=== PATIENT | female | born 1990 | race Caucasian/White ===

== ENCOUNTER 2018-05-17 18:43 | Emergency (ER) | payer MEDICAID, SELFPAY ==
[2018-05-17 19:01] VITALS: BP 117/70; PULSE 82; RESP 18; TEMP 36.6; O2SAT 99
[2018-05-17] MEDS: Erythromycin Ophth Oint 3.5 GM TUBE OD (19:56)
--- NOTE | 2018-05-17 19:59 | W.ED.GENAD ---
Discharge Plan Disposition Patient Disposition: HOME Condition: Good Discharge Details Chief Complaint: EyeProblem Clinical Impression: Abrasion, corneal Primary Care Provider: ROMAN CARRILLO ED Provider: Shady Chiu Home Meds and New Rx's Prescriptions: No Action levonorgestrel [Mirena] 1 EACH intrauterine device 1 ea Intrauterine ONCE Qty: 1 RF: 0 Discharge Instructions Instructions: Corneal Abrasion (ED) Additional Instructions: Please follow-up with Dr. Winter immediately tomorrow. Please call their office at 8 AM for follow-up. Please use the antibiotic ointment in your right eye 3 times per day. If you notice any swelling on your lids, pain with movement of your eye, fever, green or yellow discharge, please return immediately. Referrals: [facility] [OTHER] - Medical Decision Making This is a pleasant 27-year-old Female who presents with complaint of foreign body sensation in the patient's right eye. It occurred while she was blowing sawdust, and some got into her eye. She flushed it out significantly earlier at work which was 10 hours prior to arrival. Since then she has had a sensation of a foreign body in the upper aspect of her right eye. No evidence of pre-or post septal cellulitis. No evidence of significant conjunctival injection. No evidence of foreign body retention. Visualization of the cornea reveals no significant abnormalities however no floor seen stain was performed secondary to a hospitalwide shortage of the strips. There were none present in the emergency department, storehouse clerk was contacted and a global search revealed no evidence of fluorescein strips. In spite of this I was unable to see any signs of severe abrasion, however her signs and symptoms clinically are suggestive of a corneal abrasion. She had complete resolution of her pain with tetracaine administration. We will give her erythromycin ointment, she is not a contact lens wearer. She does have a relationship with Dr. Winter. We have instructed her to follow-up tomorrow morning with him. I have extensively reviewed the treatment plan and discharge instructions with the patient and their family. I have addressed all patient concerns at this time. The patient and family was made aware of what symptoms to monitor for that would warrant a return to the emergency department. Discussed the plan with the patient and family, they demonstrate verbal understanding and agreement with our assessment and plan at this time. HPI General Date/Time Provider Initiated Documentation: 05/17/18 19:47. HPI Narrative: This is a 27-year-old female with no significant past medical history who does not wear contacts who presents today for evaluation of right eye pain. She states that at 10 AM she was blowing sawdust when she got something in her right eye. She immediately flushed it with a significant amount of water, however since then she has had a sensation of a foreign body on the top of her eye. Her symptoms have continued throughout the day. She denies any significant vision changes, she denies any pain with movement of her eye. She denies any headache, green or yellow discharge, or any other abnormalities. Tetanus shot is not up-to-date. She does see an baggage security checker for her regular vision care she denies any pertinent family history. Related Data Home Medications Medication Instructions Recorded Confirmed levonorgestrel [Mirena] 1 ea INTRAUTERINE ONCE #1 implant 10/07/17 Allergies Allergy/AdvReac Type Severity Reaction Status Date / Time No Known Allergies Allergy Unverified 05/17/18 19:04 General Stated Complaint: EyeProblem MORTEZA: 3 Review of Systems Review of Systems All systems reviewed & are unremarkable except as noted in HPI and below PFSH Family History Mother Heart disease Grandfather Myocardial infarction Grandmother Breast cancer Medical History Frequent UTI LGSIL on Pap smear of cervix Social History Smoking/Tobacco Use Status: Never Exam Narrative Exam Narrative: 1.Const: Well-nourished, Well-developed, appearing stated age 2.Eyes: Right eye: EOMI, PERRL, Peripheral vision intact. No nystagmus. Fundoscopic exam shows normal optic discs and normal vasculature. No external signs of preseptal cellulitis, no redness around the eye, no proptosis. No hyphema, no signs of trauma around the eye, no periorbital emphysema. Fluorescein exam could not be performed secondary to a complete lack of floor seen in the entire hospital. Visual acuity was normal and equivalent in both eyes. Using slit lamp no signs of significant corneal abrasion or foreign body could be appreciated. Eversion of the upper and lower lids demonstrated no evidence of retained foreign body. 3.ENT: Atraumatic external nose and ears. Moist MM. Neck: Symmetric, trachea midline, No thyromegaly. 4.CVS: +S1/S2, No murmurs or gallops. Peripheral pulses 2+ and equal in all extremities. Brisk capillary refill in all extremities. 5.RESP: Unlabored respiratory effort. Clear to auscultation bilaterally. No wheezes rales or rhonchi 6.GI: Soft, Nontender/Nondistended, No hepatosplenomegaly. No guarding or rebound. 7.MSK: Normocephalic/Atraumatic, Extremities w/o deformity or ttp No cyanosis or clubbing, Normal movement of all extremities 8.Skin: Warm, Dry. No rashes or lesions. 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 Sensation grossly intact, no focal neurologic deficits. 10.Psych: (AAO) x3. Appropriate mood and affect Course Vital Signs Temperature 36.6 C 05/17/18 19:01 Pulse 82 05/17/18 19:01 Respiratory Rate 18 05/17/18 19:01 Blood Pressure 117/70 05/17/18 19:01 Pulse Oximetry 99 05/17/18 19:01 Temperature 36.6 C 05/17/18 19:01 Temperature Source Temporal Artery Scan 05/17/18 19:01 Pulse 82 05/17/18 19:01 Respiratory Rate 18 05/17/18 19:01 Respiratory Effort 05/17/18 19:04 Blood Pressure 117/70 05/17/18 19:01 Pulse Oximetry 99 05/17/18 19:01 Oxygen Delivery Method Room Air 05/17/18 19:01 Oxygen Flow Rate 0 05/17/18 19:01 Pain Level 8 05/17/18 19:01
--- NOTE | 2018-05-17 20:05 | ED.GENADUL_ITS ---
Discharge Plan Disposition Patient Disposition: HOME Condition: Good Discharge Details Chief Complaint: EyeProblem Clinical Impression: Abrasion, corneal Primary Care Provider: ROMAN CARRILLO ED Provider: Shady Chiu Home Meds and New Rx's Prescriptions: No Action levonorgestrel [Mirena] 1 EACH intrauterine device 1 ea Intrauterine ONCE Qty: 1 RF: 0 Discharge Instructions Instructions: Corneal Abrasion (ED) Additional Instructions: Please follow-up with Dr. Winter immediately tomorrow. Please call their office at 8 AM for follow-up. Please use the antibiotic ointment in your right eye 3 times per day. If you notice any swelling on your lids, pain with movement of your eye, fever, green or yellow discharge, please return immediately. Referrals: [facility] C[facility]IE [OTHER] - Medical Decision Making This is a pleasant 27-year-old Female who presents with complaint of foreign body sensation in the patient's right eye. It occurred while she was blowing sawdust, and some got into her eye. She flushed it out significantly earlier at work which was 10 hours prior to arrival. Since then she has had a sensation of a foreign body in the upper aspect of her right eye. No evidence of pre-or post septal cellulitis. No evidence of significant conjunctival injection. No evidence of foreign body retention. Visualization of the cornea reveals no significant abnormalities however no floor seen stain was performed secondary to a hospitalwide shortage of the strips. There were none present in the emergency department, warehouse trainer was contacted and a global search revealed no evidence of fluorescein strips. In spite of this I was unable to see any signs of severe abrasion, however her signs and symptoms clinically are suggestive of a corneal abrasion. She had complete resolution of her pain with tetracaine administration. We will give her erythromycin ointment, she is not a contact lens wearer. She does have a relationship with Dr. Winter. We have instructed her to follow-up tomorrow morning with him. I have extensively reviewed the treatment plan and discharge instructions with the patient and their family. I have addressed all patient concerns at this time. The patient and family was made aware of what symptoms to monitor for that would warrant a return to the emergency department. Discussed the plan with the patient and family, they demonstrate verbal understanding and agreement with our assessment and plan at this time. HPI General Date/Time Provider Initiated Documentation: 05/17/18 19:47 . HPI Narrative: This is a 27-year-old female with no significant past medical history who does not wear contacts who presents today for evaluation of right eye pain. She states that at 10 AM she was blowing sawdust when she got something in her right eye. She immediately flushed it with a significant amount of water, however since then she has had a sensation of a foreign body on the top of her eye. Her symptoms have continued throughout the day. She denies any significant vision changes, she denies any pain with movement of her eye. She denies any headache, green or yellow discharge, or any other abnormalities. Tetanus shot is not up-to-date. 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 Related Data Home Medications Medication Instructions Recorded Confirmed levonorgestrel [Mirena] 1 ea INTRAUTERINE ONCE #1 implant 10/07/17 Allergies Allergy/AdvReac Type Severity Reaction Status Date / Time No Known Allergies Allergy Unverified 05/17/18 19:04 General Stated Complaint: EyeProblem MORTEZA: 3 Review of Systems Review of Systems All systems reviewed & are unremarkable except as noted in HPI and below PFSH Family History Mother Heart disease Grandfather Myocardial infarction Grandmother Breast cancer Medical History Frequent UTI LGSIL on Pap smear of cervix Social History Smoking/Tobacco Use Status: Never Exam Narrative Exam Narrative: 1.Const: Well-nourished, Well-developed, appearing stated age 2.Eyes: Right eye: EOMI, PERRL, Peripheral vision intact. No nystagmus. Fundoscopic exam shows normal optic discs and normal vasculature. No external signs of preseptal cellulitis, no redness around the eye, no proptosis. No hyphema, no signs of trauma around the eye, no periorbital emphysema. Fluorescein exam could not be performed secondary to a complete lack of floor seen in the entire hospital. Visual acuity was normal and equivalent in both eyes. Using slit lamp no signs of significant corneal abrasion or foreign body could be appreciated. Eversion of the upper and lower lids demonstrated no evidence of retained foreign body. 3.ENT: Atraumatic external nose and ears. Moist MM. Neck: Symmetric, trachea midline, No thyromegaly. 4.CVS: +S1/S2, No murmurs or gallops. Peripheral pulses 2+ and equal in all extremities. Brisk capillary refill in all extremities. 5.RESP: Unlabored respiratory effort. Clear to auscultation bilaterally. No wheezes rales or rhonchi 6.GI: Soft, Nontender/Nondistended, No hepatosplenomegaly. No guarding or rebound. 7.MSK: Normocephalic/Atraumatic, Extremities w/o deformity or ttp No cyanosis or clubbing, Normal movement of all extremities 8.Skin: Warm, Dry. No rashes or lesions. 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 Sensation grossly intact, no focal neurologic deficits. 10.Psych: (AAO) x3. Appropriate mood and affect Course Vital Signs Temperature 36.6 C 05/17/18 19:01 Pulse 82 05/17/18 19:01 Respiratory Rate 18 05/17/18 19:01 Blood Pressure 117/70 05/17/18 19:01 Pulse Oximetry 99 05/17/18 19:01 Temperature 36.6 C 05/17/18 19:01 Temperature Source Temporal Artery Scan 05/17/18 19:01 Pulse 82 05/17/18 19:01 Respiratory Rate 18 05/17/18 19:01 Respiratory Effort 05/17/18 19:04 Blood Pressure 117/70 05/17/18 19:01 Pulse Oximetry 99 05/17/18 19:01 Oxygen Delivery Method Room Air 05/17/18 19:01 Oxygen Flow Rate 0 05/17/18 19:01 Pain Level 8 05/17/18 19:01
[2018-05-17] MEDS: Tetracaine 0.5% 4 ML BTL (20:06)
== END 2018-05-17 20:14 | disposition home or self-care (01) ==
PROVIDERS: Emergency Provider Student in an Organized Health Care Education/Training Program
DX: S05.01XA Injury of conjunctiva and corneal abrasion without foreign body, right eye, initial encounter (principal); X58.XXXA Exposure to other specified factors, initial encounter; Y99.0 Civilian activity done for income or pay
CPT/HCPCS: 90471; 99284; 99283

== ENCOUNTER 2024-04-05 15:50 | Outpatient (REF) | payer MEDICAID, SELFPAY | END 2024-04-05 15:51 | disposition home or self-care (01) | LOC: LBN 15:50 | PROVIDERS: Visit Provider Nurse Practitioner Women's Health | DX: N76.0 Acute vaginitis (principal) | CPT/HCPCS: 87480; 87510; 87660 ==

== ENCOUNTER 2025-01-11 05:05 | Outpatient (CLI) | payer MEDICAID, SELFPAY ==
[2025-01-11 12:38] LABS: HCT 42.6 % (36.0-46.0); HGB 13.5 g/dL (11.2-15.7); MCH 29.7 pg (27.0-33.0); MCHC 31.7 % (32.0-36.0); MCV 94 fL (80-95); MPV 9.6 fL (8.0-11.0); Platelet Count 309 10^3/uL (130-400); RBC 4.55 10^6/uL (3.93-5.22); RDW 13.2 % (11.7-14.6); RDW-SD 45.2 fL; WBC 7.85 10^3/uL (4.4-10.8)
[2025-01-11 12:57] LABS: Hemoglobin A1C 5.5 % (<5.7)
[2025-01-11 13:03] LABS: Anion Gap 7.5 mmol/L (3-11); BUN 12 mg/dL (7-18); CO2 30.5 mmol/L (21.0-32.0); CREATININE 0.8 mg/dL (0.55-1.02); Calcium 8.7 mg/dL (8.5-10.1); Calculated LDL 146 mg/dL (<100); Chloride 101 mmol/L (98-107); Cholesterol 208 mg/dL (<200); Estimated GFR 98.48 (mL/min/1.73m2); Glucose 94 mg/dL (74-106); HDL Cholesterol 51 mg/dL (>or=50); Potassium 3.7 mmol/L (3.5-5.1); Sodium 139 mmol/L (136-145); TSH (W/Ref FT4) 1.33 uIU/mL (0.36-3.74); Triglyceride 57 mg/dL (<150)
== END 2025-01-11 05:06 | disposition home or self-care (01) ==
LOC: LOS 05:05
PROVIDERS: PCP Nurse Practitioner Family; Visit Provider Nurse Practitioner Family
DX: Z00.00 Encounter for general adult medical examination without abnormal findings (principal); N76.0 Acute vaginitis; B96.89 Other specified bacterial agents as the cause of diseases classified elsewhere; Z13.1 Encounter for screening for diabetes mellitus
CPT/HCPCS: 36415; 80048; 80061; 85027; 83036; 84443

== ENCOUNTER 2025-03-03 10:01 | Emergency (ER) | payer MEDICAID, SELFPAY ==
[2025-03-03 10:30] VITALS: BP 112/75; PULSE 105; RESP 16; TEMP 37.3; O2SAT 96
[2025-03-03] MEDS: Ibuprofen 400 MG TAB PO (10:46)
[2025-03-03 11:00] VITALS: BP 112/75; PULSE 105; RESP 16; TEMP 37.3; O2SAT 96
--- NOTE | 2025-03-03 11:30 | W.ED.GENAD ---
Discharge Plan Disposition Patient Disposition: Home Condition: Good Discharge Details Clinical Impression: Strep pharyngitis Primary Care Provider: Abigail Lara ED Provider: Jazlyn Clark Home Meds and New Rx's Prescriptions: New amoxicillin 500 mg tablet 500 mg PO BID Qty: 19 0RF No Action semaglutide (weight loss) 0.5 mg/0.5 mL pen injector 0.5 mg subcut QWEEK Qty: 2 1RF Rx Instructions: Semaglutide + cyanocobalamin for compounding. Patient requires additional drug component of B12 to decrease risk of side effects of fatigue. Azo Boric Acid 600 mg suppository 600 mg vaginal HS Qty: 30 0RF Mirena 1 EACH intrauterine device 1 ea Intrauterine ONCE Qty: 1 Excedrin Tension Headache 500-65 mg tablet 1 tab PO Q12H PRN Discharge Instructions Instructions: Strep throat in adults Additional Instructions: Your strep test was positive. You are being treated with amoxicillin. Please take the full course as prescribed. I recommend you take Tylenol 650 mg and ibuprofen 600 mg every 8 hours together for pain control. I recommend that you take plenty of iced drinks/foods to help with discomfort. Throat lozenges may also be helpful for discomfort. Stay well-hydrated, drinking plenty of fluids throughout the day. You mind that strep is very contagious. Please change her toothbrush in your pillowcases/towels after 24 hours of antibiotics. Sharing food/utensils or kissing anyone until you are fully treated. Return to emergency care if you develop swelling on one side of your neck, inability to swallow, muffled voice, high fevers after 48 hours of antibiotics, difficulty opening your mouth, or if you are very concerned you need to be rechecked again immediately Referrals: Abigail Lara, KAILEE [Primary Care Provider, Medicine] Discharge Data Discharge Date/Time-TO BE ENTERED AT DEPARTURE: 03/03/25 11:47 HPI General Date/Time Provider Initiated Documentation: 03/03/25 10:25. HPI Narrative: Rachel is a 34-year-old female presents to the emergency department today evaluation of sore throat. She reports symptoms started few days ago, has escalated to include fatigue, headache, nausea/vomiting, hot and cold flashes, and enlarged lymph nodes. Denies congestion, ear pain, cough, abdominal pain, change in bowel or bladder function. No known strep+ contacts. She has been using ibuprofen for discomfort. Denies significant past medical history or allergies. Recently treated for BV with metronidazole, with antibiotic use Related Data Home Medications ?Medication ?Instructions ?Recorded ?Confirmed levonorgestrel (Mirena) 1 ea intrauterine ONCE #1 implant 10/07/17 03/03/25 acetaminophen-caffeine 500 mg-65 1 tab PO Q12H PRN 12/06/24 03/03/25 mg tablet (Excedrin Tension Headache) boric acid 600 mg vaginal 600 mg vaginal HS #30 ea 01/02/25 03/03/25 suppository (Azo Boric Acid) semaglutide (weight loss) 0.5 0.5 mg (0.5 mL) subcut QWEEK #2 mL 02/13/25 03/03/25 mg/0.5 mL subcutaneous pen injector amoxicillin 500 mg tablet 500 mg PO BID #19 tabs 03/03/25 Previous Rx's ?Medication ?Instructions ?Recorded boric acid 600 mg vaginal 600 mg vaginal HS #30 ea 01/02/25 suppository (Azo Boric Acid) semaglutide (weight loss) 0.5 0.5 mg (0.5 mL) subcut QWEEK #2 mL 02/13/25 mg/0.5 mL subcutaneous pen injector amoxicillin 500 mg tablet 500 mg PO BID #19 tabs 03/03/25 Allergies Allergy/AdvReac Type Severity Reaction Status Date / Time No Known Allergies Allergy Unverified 03/03/25 10:32 General Stated Complaint: Sorethroat MORTEZA: 4 Exam Narrative Exam Narrative: General Appearance: Normal. Patient is alert and oriented, no acute discomfort. Vital signs: Within normal limits. HEENT: Mild erythema in throat. No exudate or tonsillar hypertrophy. Moist mucous membranes. Respiratory: Easy work of breathing. Lymphatic: Mild cervical lymphadenopathy. Full painless range of motion of neck Skin: Warm and dry, no rash. Psychiatric: Normal. Course Vital Signs Vital signs: Vital Signs Temperature 37.3 C 03/03/25 10:30 Pulse 105 H 03/03/25 10:30 Respiratory Rate 16 03/03/25 10:30 Blood Pressure 112/75 03/03/25 10:30 Pulse Oximetry 96 03/03/25 10:30 Temperature 37.3 C 03/03/25 11:00 Temperature Source Oral 03/03/25 11:00 Pulse 105 H 03/03/25 11:00 Respiratory Rate 16 03/03/25 11:00 Blood Pressure 112/75 03/03/25 11:00 Pulse Oximetry 96 03/03/25 11:00 Oxygen Delivery Method Room Air 03/03/25 11:00 Pain Level 10 03/03/25 11:00 Lab/Test Results Lab/Test Results: 03/03/25 10:33 Tonsil - Not Specified Group A Streptococcus Culture - Pending POC Strep Test-JOANNA(Rapid) Start: 03/03/25 10:32 Freq: .Rapid Strep Test Status: Active Protocol: Document 03/03/25 11:02 (Rec: 03/03/25 11:02 [id number]) Strep test-JOANNA(Rapid)-POC POC-Strep test-JOANNA ( Positive Rapid) POC-Strep test-JOANNA (Rapid) Positive Medical Decision Making Initial Assessment: 34-year-old female with sore throat, swollen lymph nodes, and fatigue. Strep throat confirmed by strep test. ED Course: - Motrin administered for pain relief. - Antibiotics prescribed and first dose given in ED. - Tachycardia noted, patient does not appear dehydrated, does not meet SIRS criteria or appear toxic. Recommend good hydration at home. Final Assessment: Patient diagnosed with strep throat. Pain managed with Motrin. Antibiotics initiated. No red flags concerning for deep space infection, peritonsillar or retropharyngeal abscess, or acute systemic infection at this time requiring diagnostic imaging or blood work Clinical Impression: - Strep throat Disposition: - Discharge: Home - Follow-Up: Complete full course of antibiotics. Change pillowcase and toothbrush after 24 hours of starting antibiotics. Patient Education: Take ibuprofen 1000 mg up to three times a day, not exceeding three tablets at a time, and can be taken concurrently with two tablets of Tylenol. Use cough drops and cold items like smoothies and popsicles to soothe throat and maintain hydration. Adequate rest advised over the weekend. MDM Components Evaluation: - Number of Differential Diagnoses or Management Options: Strep throat - Amount and Complexity of Data Reviewed: Strep test - Risk of Complication and Morbidity or Mortality: Risk of worsening symptoms including significant neck swelling, muffled voice, high fevers after first four doses of antibiotics, inability to keep food down, or difficulty breathing due to swelling. Patient consented to the use of PAUL PFSH All Active Problems (Updated 03/03/25 @ 11:30 by Jazlyn Nino) Strep pharyngitis (Acute) Obesity (BMI 30.0-34.9) (Acute) IUD surveillance (Acute ~10/2023) [facility] Medical History (Updated 03/03/25 @ 11:30 by Jazlyn Nino) Constipation Bacterial vaginosis Recurrent Frequent UTI LGSIL on Pap smear of cervix Pap: LSIL 2015, LSIL 2012, benign colpo 10/2017 LGSIL. Colpo. couldnt r/o HGSIL. plan repeat pap/hpv in 2018 Surgical History (Updated 12/06/24 @ 13:43 by Kim Thapa RN) History of delivery (~08/20/10) Family History (Updated 12/06/24 @ 13:49 by Kim Thapa RN) Mother Heart disease HX CABG Hypertension H/O heart bypass surgery Maternal Grandfather , [place] age 55. Myocardial infarction Diabetes S/P triple vessel bypass Maternal Grandmother Breast cancer Thyroid disease Father Pre-diabetes Hypertension Lung cancer Stroke Myocardial infarction Paternal Grandfather Lung cancer Paternal Grandmother Diabetes Myocardial infarction Social History (Updated 01/04/25 @ 09:30 by Olimpia Orona) Smoking/Tobacco Use Status: Never Second Hand Exposure: Yes Smoking risk assessment performed?: Yes Alcohol Intake: current Alcohol Intake frequency: holidays/special occasions only Alcohol type: beer Drug use: Never Substance use type: does not use Adopted: No Caregiver/Support person: No Household members: children Housing: house Number of Children: 1 Education Level: high school Do you need help understanding health information?: Never Sexually active: Yes Do you think of yourself as: straight/heterosexual Current gender identity: female What is your relationship status?: living with partner How often do you talk on the phone with friends or family?: twice per week How often do you get together with friends or relatives?: once per week How often do you attend scientologist or baptism services?: decline to answer Do you belong to any clubs or organized social groups?: no Panel score (0-1 are the most socially isolated patients): 2 NHANES result reviewed/action taken: Yes What type of physical activity do you participate in: regular exercise Duration: 15-30 minutes/day Frequency: 1-2 times per week Seatbelt use: always Helmet use: No Drive intox or ride w/intox hearse driver: No Working smoke detector in home: Yes Carbon monox detector in home: Yes Firearms in home: No Do you feel safe at home: Yes Do you feel safe in your relationship?: Yes Female Reproductive History Menstrual Age of Menarche: 12 control method: progestin IUCD History History 1 Para 1 Hx # Term Pregnancies Multiple births Hx # Pregnancies Ectopic pregnancies AB induced Hx Number of Living Children AB spontaneous
[2025-03-03] MEDS: Amoxicillin 500 MG CAP PO (11:33)
== END 2025-03-03 11:47 | disposition home or self-care (01) ==
PROVIDERS: Emergency Provider Nurse Practitioner Family; PCP Nurse Practitioner Family
DX: J02.0 Streptococcal pharyngitis (principal); Z79.899 Other long term (current) drug therapy
CPT/HCPCS: 87426; 87880; 99283; 87081